=== PATIENT | female | born 1990 | race Caucasian/White ===

== ENCOUNTER 2021-06-09 03:44 | Emergency (ER) | payer OTHER ==
[2021-06-09 04:40] LABS: BASOPHIL 0.4 % (0-2); EOSINOPHIL 0.3 % (0-5); HGB 13.1 g/dl (12.5-16.0); LYMPHOCYTE 13.5 % (15-48); MCH 29.7 pg (25.0-31.0); MCHC 32.8 g/dL (32.0-36.0); MCV 90.7 fL (78.0-100.0); NEUTROPHIL 81.5 % (41-80); NRBC 0; PLT 309 K/uL (150-400); RBC 4.41 M/uL (4.20-5.40); RDW 13.2 % (11.5-14.0); WBC 10.8 K/uL (4.0-10.5)
[2021-06-09 04:59] LABS: ALBUMIN 3.6 g/dL (3.4-5.0); BILIRUBIN - TOTAL 1.3 mg/dL (0.2-1.0); BUN/CREAT RATIO (CALC) 15.6 RATIO; CREATININE 0.64 mg/dL (0.51-0.95); TOTAL PROTEIN 7.6 g/dL (6.4-8.2)
[2021-06-09 06:02] LABS: BILIRUBIN NEGATIVE (NEGATIVE); BLOOD NEGATIVE Ery/uL (NEGATIVE); CLARITY CLEAR (CLEAR); COLOR YELLOW (YELLOW); GLUCOSE (U) NORMAL (NORMAL); LEUKOCYTES NEGATIVE Leu/uL (NEGATIVE); NITRITE NEGATIVE (NEGATIVE); PROTEIN NEGATIVE (NEGATIVE); SPECIFIC GRAVITY 1.015 (1.001-1.030); UROBILINOGEN 0.2 mg/dL (0.2-1.0); pH 8.5 (5.0-9.0)
[2021-06-09 06:17] LABS: HCG (URINE) SCREEN NEGATIVE (NEGATIVE)
[2021-06-09 09:46] LABS: CORONAVIRUS 2019 SARS-COV-2 NEGATIVE (NEGATIVE); INFLUENZA A NAA NEGATIVE (NEGATIVE)
[2021-06-09] MEDS ORDERED: ETODOLAC300 MG PO (10:51)
[2021-06-09] MEDS ORDERED: NORCO 5-325 TA1 EACH PO (10:51)
[2021-06-09] MEDS ORDERED: ONDANSETRON ODT4 MG SL (10:51)
== END 2021-06-09 11:26 | disposition home or self-care (01) ==
LOC: FER 03:44
PROVIDERS: Emergency Medicine Emergency Medical Services
DX: K80.20 Calculus of gallbladder without cholecystitis without obstruction (principal); K76.0 Fatty (change of) liver, not elsewhere classified; Z20.822 Contact with and (suspected) exposure to COVID-19
CPT/HCPCS: 36415; 76705; 80053; 81003; 83690; 84703; 85025; J1885; J2405; Q9967; U0002

== ENCOUNTER → 2021-07-07 | Day surgery (SDC) | payer OTHER ==
[~2021-07-07] VITALS: Ht 167.6 cm; Wt 127.0 kg
[~2021-07-07] MED LIST: ETODOLAC300 MG PO; MIRALAX17 GM PO; NORCO 5-325 TA1 EACH PO; ONDANSETRON ODT4 MG SL; PERCOCET 10-321 EACH PO
[2021-07-07 07:22] LABS: HCG (URINE) SCREEN NEGATIVE (NEGATIVE)
[2021-07-07 08:54] LABS: ALBUMIN 3.7 g/dL (3.4-5.0); BILIRUBIN - TOTAL 0.4 mg/dL (0.2-1.0); BUN/CREAT RATIO (CALC) 22.6 RATIO; CREATININE 0.62 mg/dL (0.51-0.95); POTASSIUM 4.4 mmol/L (3.5-5.1); TOTAL PROTEIN 7.7 g/dL (6.4-8.2)
== END | disposition home or self-care (01) ==
LOC: FAS 07:06
PROVIDERS: Surgery
DX: K80.64 Calculus of gallbladder and bile duct with chronic cholecystitis without obstruction (principal); E66.01 Morbid (severe) obesity due to excess calories; E03.9 Hypothyroidism, unspecified; K76.0 Fatty (change of) liver, not elsewhere classified; Z20.822 Contact with and (suspected) exposure to COVID-19; Z68.42 Body mass index [BMI] 45.0-49.9, adult; Z79.891 Long term (current) use of opiate analgesic; Z79.899 Other long term (current) drug therapy
CPT/HCPCS: 36415; 80053; 84703; J0295; J1100; J1885; J2250; J2405; J2704; J2710; J3010; J7120; Q9967